=== PATIENT | male | born 1960 | race Hispanic/Latino ===

== ENCOUNTER 2017-12-28 13:55 | Emergency (ER) | payer OTHER ==
[2017-12-28 14:01] VITALS: BMI 42.5
[2017-12-28] MEDS ORDERED: Morphine 2 mg/ml ISec ONE (14:04)
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
[2017-12-28 14:35] LABS: BASO # 0.02 K/mm3 (0.0-2.0); BASO % 0.2 % (0.0-3.0); EOS # 0.2 (0.0-0.7); EOS % 1.9 % (1.5-5.0); GRAN # 5.14 (1.4-6.5); GRAN % 62.6 % (50.0-68.0); HEMOGLOBIN 16.1 g/dL (14.0-18.0); LYMPH # 2.4 (1.2-3.4); LYMPH % 29.7 % (22.0-35.0); MEAN CELL VOLUME 91.8 fl (80.0-105.0); MEAN CORPUSCULAR HEMOGLOBIN 32.1 pg (25.0-35.0); MEAN CORPUSCULAR HGB CONC 34.9 g/dl (31.0-37.0); MEAN PLATELET VOLUME 9.7 fl (7.0-11.0); MONO # 0.5 (0.1-0.6); MONO % 5.6 % (1.0-6.0); RBC 5.02 10^6/uL (3.5-6.1); RED CELL DISTRIBUTION WIDTH 13.6 % (11.5-14.5); WHITE BLOOD COUNT 8.2 10^3/ul (4.5-11.0)
[2017-12-28 14:38] LABS: PARTIAL THROMBOPLASTIN TIME 27.1 Seconds (25.1-36.5); PROTHROMBIN TIME 11.4 SECONDS (9.4-12.5)
--- NOTE | 2017-12-28 14:56 | RAD ---
Date of service: 12/28/2017 PROCEDURE: Pelvis and right hip HISTORY: right hip pain r/o fx vs dislocation COMPARISON: TECHNIQUE: Two views FINDINGS: There is dislocation of the right hip prosthesis. The femoral head is displaced superiorly. There is no evidence of fracture IMPRESSION: Right hip dislocation
[2017-12-28 14:58] LABS: BLOOD UREA NITROGEN 16 mg/dL (7-21); GFR NON-AFRICAN AMERICAN > 60
[2017-12-28 14:59] LABS: CALCIUM 9.6 mg/dL (8.4-10.5)
[2017-12-28] MEDS ORDERED: Propofol 10 mg/ml Inj (20 ML) IVP ONE (15:30)
[2017-12-28] MEDS ORDERED: Ketamine 50 mg/ml Inj (10 ml) IV STA (15:30)
[2017-12-28] MEDS ORDERED: Propofol 10 mg/ml 1,000 MG/100 ML VIAL ONE (15:33)
[2017-12-28] MEDS ORDERED: Ketamine 10 mg/ml Inj (20 ml) ONE (15:33)
[2017-12-28] MEDS ORDERED: Propofol 10 mg/ml 1,000 MG/100 ML VIAL IV PRN (15:53)
--- NOTE | 2017-12-28 16:27 | RAD ---
Date of service: 12/28/2017 PROCEDURE: Right hip three views HISTORY: post hip reduction xray COMPARISON: Initial film earlier today TECHNIQUE: Three views FINDINGS: There has been successful reduction of the dislocated right hip prosthesis IMPRESSION: As above
[2017-12-28 17:19] VITALS: BP 130/80; PULSE 98; RESP 18; TEMP 98.2; O2SAT 98
== END 2017-12-28 17:23 | disposition home or self-care (01) ==
LOC: ED 13:55
DX: S73.014A Posterior dislocation of right hip, initial encounter (principal); W19.XXXA Unspecified fall, initial encounter
CPT/HCPCS: 27250; 73502; 80048; 85025; 85610; 85730; 86850; 86900; 96374; 96375; 99285; J2060; J2270; J2704